=== PATIENT | female | born 1995 | race Two or more races ===

== ENCOUNTER 2022-04-13 14:10 | Emergency (ER) | payer OTHER ==
[~2022-04-13] VITALS: Ht 167.6 cm; Wt 16.0 kg
[2022-04-13 14:41] VITALS: BP 125/88
[2022-04-13] MEDS ORDERED: ACET-1158 PO (16:05)
[2022-04-13] MEDS ORDERED: AZITTAB PO (16:05)
== END 2022-04-13 16:12 | disposition home or self-care (01) ==
LOC: ER 14:10
DX: J02.9 Acute pharyngitis, unspecified (principal); I10 Essential (primary) hypertension; Z90.89 Acquired absence of other organs; Z79.2 Long term (current) use of antibiotics; Z79.899 Other long term (current) drug therapy; Z88.8 Allergy status to other drugs, medicaments and biological substances; Z20.822 Contact with and (suspected) exposure to COVID-19
CPT/HCPCS: 36415